=== PATIENT | female | born 1960 | race Caucasian/White ===

== ENCOUNTER 2018-06-09 08:10 | Day surgery (SDC) | payer OTHER ==
[2018-06-02 12:58] VITALS: BMI 23.9
[2018-06-09] MEDS ORDERED: PROPOFOL 20 ML ONE ×3 (08:13→08:14)
[2018-06-09 09:20] VITALS: TEMP 98.2
[2018-06-09 09:50] VITALS: BP 112/66; PULSE 72
== END 2018-06-09 09:52 | disposition home or self-care (01) ==
LOC: FASU-ENDO 08:10
PROVIDERS: ATTEND Internal Medicine Gastroenterology
PROC: 0DJD8ZZ Inspection of Lower Intestinal Tract, Via Natural or Artificial Opening Endoscopic (ICD-10-PCS; principal; 2018-06-09 08:53)
DX: Z86.010 Personal history of colon polyps (principal); Z80.0 Family history of malignant neoplasm of digestive organs; K57.30 Diverticulosis of large intestine without perforation or abscess without bleeding